=== PATIENT | male | born 1940 | race Caucasian/White ===

== ENCOUNTER → 2017-11-19 | Outpatient (CLI) | payer OTHER ==
[~2017-11-19] MED LIST: ADVAIR 500/501 DISK IH; Ceftin PO; Colchicine,Colcrys PO; DILAUDID2 MG PO; FLOMAX0.4 MG PO; FLOVENT DISKUS50 MCG IH; HYDROCODONE-AP1 EAC8 PO; Motrin PO; SIMVASTATIN10 MG PO; SPIRIVA1 INHALATI IH; THEO-DUR,THEOC200 MG PO; VENTOLIN HFA18 GM IH; ZOCOR10 MG PO
== END | disposition home or self-care (01) ==
LOC: RAD 08:30
DX: J98.6 Disorders of diaphragm (principal)
CPT/HCPCS: 76604; 93306